=== PATIENT | male | born 1965 | race Caucasian/White ===

== ENCOUNTER 2017-04-21 14:35 | Inpatient (IN) | payer BC ==
[~2017-04-21] VITALS: Ht 175.3 cm; Wt 63.5 kg
[2017-04-21 15:37] LABS: HEMOGLOBIN 12.3 gm/dl (14.0-17.5); RED BLOOD COUNT 3.88 M/UL (4.20-5.50); WHITE BLOOD COUNT 8.4 K/UL (4.5-11.0)
[2017-04-21 16:05] LABS: BUN/CREATININE RATIO 22 (0-10)
[2017-04-22 06:20] LABS: BUN/CREATININE RATIO 28 (0-10)
[2017-04-22 08:18] LABS: RED BLOOD COUNT 4.67 M/UL (4.20-5.50)
[2017-04-23 04:48] LABS: WHITE BLOOD COUNT 9.3 K/UL (4.5-11.0)
[2017-04-23 04:51] LABS: RED BLOOD COUNT 4.03 M/UL (4.20-5.50)
[2017-04-23 04:58] LABS: BUN/CREATININE RATIO 20 (0-10)
[2017-04-23] MEDS ORDERED: ASPIRIN81 MG PO (11:40)
== END 2017-04-23 14:06 | disposition home or self-care (01) | DRG 918 ==
LOC: ER1 14:35 → ZEROF 17:34 → CCU 17:34 → ZEROF 23:40 → CCU 04-22 01:31
PROVIDERS: Emergency Medicine; Internal Medicine; ADMIT Internal Medicine
DX: T42.4X1A Poisoning by benzodiazepines, accidental (unintentional), initial encounter (principal); G45.9 Transient cerebral ischemic attack, unspecified; T40.601A Poisoning by unspecified narcotics, accidental (unintentional), initial encounter; T40.7X1A Poisoning by cannabis (derivatives), accidental (unintentional), initial encounter; F17.200 Nicotine dependence, unspecified, uncomplicated; R55 Syncope and collapse; M60.9 Myositis, unspecified; K57.90 Diverticulosis of intestine, part unspecified, without perforation or abscess without bleeding; R11.2 Nausea with vomiting, unspecified; F11.10 Opioid abuse, uncomplicated; F12.10 Cannabis abuse, uncomplicated; F19.10 Other psychoactive substance abuse, uncomplicated
CPT/HCPCS: ECHO; 36415; 70450; 70551; 71010; 80053; 80307; 81001; 82550; 82553; 82962; 83036; 83874; 84484; 85025; 85027; 87086; 93005; 93306; 93880; J2310; J2550; J7030; Q2039; Q9962